=== PATIENT | female | born 1960 | race Caucasian/White ===

== ENCOUNTER 2023-04-08 22:48 | Inpatient (IN) | payer BC ==
[~2023-04-08] VITALS: Ht 167.6 cm; Wt 61.3 kg
[2023-04-08] MEDS ORDERED: LISI20TA30 PO (23:16)
[2023-04-08] MEDS ORDERED: OMEP20CA15 PO (23:16)
[2023-04-08] MEDS ORDERED: OXYC-133 PO (23:16)
[2023-04-08] MEDS ORDERED: GABA600T12 PO (23:16)
[2023-04-08] MEDS ORDERED: DIAZ5TAB4 PO (23:16)
[2023-04-08] MEDS ORDERED: ONDANSETRON 4 MG/2 ML VIAL ONE (23:24)
[2023-04-08 23:33] LABS: BASOPHILS # (AUTO) 0.1 K/UL (0.0-0.2); BASOPHILS % (AUTO) 0.7 % (0.0-2.0); EOSINOPHILS # (AUTO) 0.6 K/uL (0.0-0.7); EOSINOPHILS % (AUTO) 7.7 % (0.0-7.0); HEMATOCRIT 39.2 % (31.2-41.9); HEMOGLOBIN 12.8 g/dL (10.9-14.3); LYMPHOCYTES # (AUTO) 2.1 K/uL (0.8-4.8); LYMPHOCYTES % (AUTO) 26.9 % (20.5-51.5); MEAN CORPUSCULAR HEMOGLOBIN 30.9 uug (24.7-32.8); MEAN CORPUSCULAR HGB CONC 33 g/dL (32.3-35.6); MEAN CORPUSCULAR VOLUME 94.5 fL (75.5-95.3); MONOCYTES # (AUTO) 0.8 K/uL (0.1-1.30); MONOCYTES % (AUTO) 10.1 % (0.0-11.0); NEUTROPHILS # (AUTO) 4.4 K/uL (1.8-8.9); NEUTROPHILS % (AUTO) 54.6 % (38.5-71.5); PLATELET COUNT (AUTO) 218 K/uL (179-408); RED BLOOD CELL COUNT(AUTO) 4.15 MIL/uL (3.63-4.92); RED CELL DISTRIBUTION WIDTH 13.9 % (12.3-17.7)
[2023-04-08] MEDS ORDERED: SODIUM BICARBONATE 4.2 % (NEUT) 5 ML VIAL ONE (23:41)
[2023-04-08] MEDS ORDERED: LIDOCAINE 1%-EPI 1:100,000 20 ML VIAL ONE (23:41)
[2023-04-08 23:42] LABS: DIFFERENTIAL COMMENT 1
[2023-04-08] MEDS: SODIUM BICARBONATE 4.2 % (NEUT) 5 ML VIAL TP ONE (23:45)
[2023-04-09] VITALS (7 sets, daily range): BP systolic 103–121; BP diastolic 57–70; TEMP 97.9–98.4; O2SAT 94–98
[2023-04-09 00:04] LABS: CALCIUM 9.1 mg/dL (8.5-10.1); CARBON DIOXIDE 25 mmol/L (21-32); CHLORIDE 108 mmol/L (98-107); CREATININE 1.8 mg/dL (0.6-1.3); GLUCOSE 113 mg/dL (74-106); POTASSIUM 4.2 mmol/L (3.5-5.1); SODIUM SERUM 143 mmol/L (136-145); UREA NITROGEN, BLOOD 23 mg/dL (7-18)
[2023-04-09] MEDS: IV NORMAL SALINE 1000 ML BAG IV ONE (00:04)
[2023-04-09] MEDS: ONDANSETRON 4 MG/2 ML VIAL IV ONE ×2 (00:04→01:04)
[2023-04-09 00:12] LABS: ALANINE AMINOTRANSFERASE 23 U/L (14-59); ALKALINE PHOSPHATASE 93 U/L (50-136); ASPARTATE AMINOTRANSFERASE 25 U/L (15-37); BILIRUBIN,TOTAL 0.2 mg/dL (0.2-1.0); TOTAL PROTEIN, SERUM 7.5 g/dL (6.4-8.2)
[2023-04-09 00:22] LABS: BILIRUBIN,DIRECT 0.1 mg/dL (0.0-0.2)
[2023-04-09] MEDS ORDERED: ONDANSETRON 4 MG/2 ML VIAL ONE (00:34)
[2023-04-09] MEDS ORDERED: HYDROMORPHONE 1 MG/1 ML DISP.SYRIN ONE ×2 (00:35→01:31)
[2023-04-09] MEDS: HYDROMORPHONE 1 MG/1 ML DISP.SYRIN IV ONE ×2 (01:03→01:35)
[2023-04-09] MEDS ORDERED: IV NORMAL SALINE 250 ML IV ONE (01:08)
[2023-04-09] MEDS ORDERED: SWABABLE VALVE TRANSFER SET EA MC ONE (01:08)
[2023-04-09] MEDS ORDERED: IOHEXOL 300MG/ML 100 ML INFUS..BTL ONE (01:08)
[2023-04-09] MEDS: LIDOCAINE 1%-EPI 1:100,000 20 ML VIAL IJ ONE (02:26)
[2023-04-09] MEDS ORDERED: IOHEXOL 350 100 ML INFUS..BTL ONE (02:55)
[2023-04-09] MEDS ORDERED: ACETAMINOPHEN 325 MG TABLET PO PRN (05:00)
[2023-04-09] MEDS ORDERED: ONDANSETRON 4 MG/2 ML VIAL IV PRN (05:00)
[2023-04-09] MEDS ORDERED: DIAZEPAM 2 MG TABLET PO PRN (05:15)
[2023-04-09] MEDS: ENOXAPARIN SODIUM 30 MG/0.3 ML DISP.SYRIN SUBCUT SCH (05:40)
[2023-04-09] MEDS: OXYCODONE/APAP 5-325 MG TABLET PO PRN (05:41)
[2023-04-09] MEDS: IV NS 1000 ML 1,000 ML IV PRN (05:54)
[2023-04-09] MEDS: PANTOPRAZOLE SODIUM 40 MG TABLET.DR PO SCH (07:05)
[2023-04-09 07:39] LABS: THYROID STIMULATING HORMONE 1.365 mIU/mL (0.358-3.740)
[2023-04-09] MEDS: GABAPENTIN 300 MG CAPSULE PO SCH (08:39)
[2023-04-09] MEDS: LISINOPRIL 20 MG TABLET PO SCH (08:39)
[2023-04-09 09:41] LABS: BASOPHILS % (AUTO) 0.6 % (0.0-2.0); EOSINOPHILS # (AUTO) 0.5 K/uL (0.0-0.7); EOSINOPHILS % (AUTO) 5.9 % (0.0-7.0); HEMOGLOBIN 11.1 g/dL (10.9-14.3); LYMPHOCYTES # (AUTO) 2.3 K/uL (0.8-4.8); LYMPHOCYTES % (AUTO) 28.6 % (20.5-51.5); MEAN CORPUSCULAR HEMOGLOBIN 31.7 uug (24.7-32.8); MEAN CORPUSCULAR HGB CONC 34 g/dL (32.3-35.6); MEAN CORPUSCULAR VOLUME 94.5 fL (75.5-95.3); MONOCYTES # (AUTO) 0.7 K/uL (0.1-1.30); MONOCYTES % (AUTO) 9.1 % (0.0-11.0); NEUTROPHILS # (AUTO) 4.5 K/uL (1.8-8.9); NEUTROPHILS % (AUTO) 55.8 % (38.5-71.5); PLATELET COUNT (AUTO) 180 K/uL (179-408); RED BLOOD CELL COUNT(AUTO) 3.49 MIL/uL (3.63-4.92); RED CELL DISTRIBUTION WIDTH 13.9 % (12.3-17.7); WHITE BLOOD COUNT (AUTO) 8.1 K/uL (3.8-11.8)
[2023-04-09 09:56] LABS: DIFFERENTIAL COMMENT 1
[2023-04-09 10:07] LABS: CALCIUM 8.2 mg/dL (8.5-10.1); CREATININE 1.5 mg/dL (0.6-1.3); POTASSIUM 4.7 mmol/L (3.5-5.1)
[2023-04-09] MEDS ORDERED: ALPR1TAB7 PO (10:39)
[2023-04-09 13:43] LABS: *BILIRUBIN,URIN NEGATIVE (NEGATIVE); *BLOOD, URINE NEGATIVE (NEGATIVE); *CLARITY,URINE CLEAR (CLEAR); *COLOR,URINE LIGHT YELLOW (YELLOW); *KETONES,URINE NEGATIVE (NEGATIVE); *PROTEIN,URINE NEGATIVE (NEGATIVE); *UROBILINOGEN,URINE 0.2 E.U./dl (NORMAL); LEUKOCYTE ESTERASE ,URINE NEGATIVE (NEGATIVE); NITRITE, URINE NEGATIVE (NEGATIVE); UGLUCOSE NEGATIVE (NEGATIVE)
[2023-04-09 14:02] LABS: *CREATININE,URINE 44.7 mg/dL (30-125); *URINE TOTAL PROTEIN RANDOM 14.1 mg/dL (<150/24HR)
[2023-04-10] VITALS (7 sets, daily range): BP systolic 99–136; BP diastolic 60–77; TEMP 97.8–98.6; O2SAT 95–98
[2023-04-10 07:07] LABS: BASOPHILS % (AUTO) 0.7 % (0.0-2.0); EOSINOPHILS # (AUTO) 0.4 K/uL (0.0-0.7); EOSINOPHILS % (AUTO) 7.5 % (0.0-7.0); HEMATOCRIT 31.7 % (31.2-41.9); HEMOGLOBIN 10.6 g/dL (10.9-14.3); LYMPHOCYTES # (AUTO) 1.9 K/uL (0.8-4.8); LYMPHOCYTES % (AUTO) 31.9 % (20.5-51.5); MEAN CORPUSCULAR HEMOGLOBIN 31.3 uug (24.7-32.8); MEAN CORPUSCULAR HGB CONC 33 g/dL (32.3-35.6); MONOCYTES # (AUTO) 0.6 K/uL (0.1-1.30); MONOCYTES % (AUTO) 10.8 % (0.0-11.0); NEUTROPHILS # (AUTO) 2.9 K/uL (1.8-8.9); NEUTROPHILS % (AUTO) 49.1 % (38.5-71.5); PLATELET COUNT (AUTO) 156 K/uL (179-408); RED BLOOD CELL COUNT(AUTO) 3.37 MIL/uL (3.63-4.92); RED CELL DISTRIBUTION WIDTH 13.9 % (12.3-17.7)
[2023-04-10 07:14] LABS: DIFFERENTIAL COMMENT 1
[2023-04-10 07:24] LABS: ALBUMIN 2.8 g/dL (3.4-5.0); BILIRUBIN,TOTAL 0.4 mg/dL (0.2-1.0); CALCIUM 8.2 mg/dL (8.5-10.1); CREATININE 1.2 mg/dL (0.6-1.3); MAGNESIUM 1.8 mg/dL (1.8-2.4); PHOSPHOROUS 3.8 mg/dL (2.5-4.9); POTASSIUM 4.5 mmol/L (3.5-5.1); TOTAL PROTEIN, SERUM 5.6 g/dL (6.4-8.2)
[2023-04-11] VITALS (7 sets, daily range): BP systolic 132–141; BP diastolic 61–86; TEMP 97.8–98.9; O2SAT 95–99
[2023-04-11] MEDS: DIAZEPAM 5 MG TABLET PO PRN (00:44)
[2023-04-11 08:03] LABS: BASOPHILS % (AUTO) 0.8 % (0.0-2.0); EOSINOPHILS # (AUTO) 0.4 K/uL (0.0-0.7); HEMATOCRIT 33.1 % (31.2-41.9); HEMOGLOBIN 11.1 g/dL (10.9-14.3); LYMPHOCYTES # (AUTO) 1.6 K/uL (0.8-4.8); LYMPHOCYTES % (AUTO) 28.6 % (20.5-51.5); MEAN CORPUSCULAR HEMOGLOBIN 31.4 uug (24.7-32.8); MEAN CORPUSCULAR HGB CONC 33 g/dL (32.3-35.6); MEAN CORPUSCULAR VOLUME 94.1 fL (75.5-95.3); MONOCYTES # (AUTO) 0.6 K/uL (0.1-1.30); NEUTROPHILS # (AUTO) 3.1 K/uL (1.8-8.9); NEUTROPHILS % (AUTO) 53.6 % (38.5-71.5); PLATELET COUNT (AUTO) 162 K/uL (179-408); RED BLOOD CELL COUNT(AUTO) 3.52 MIL/uL (3.63-4.92); RED CELL DISTRIBUTION WIDTH 13.5 % (12.3-17.7); WHITE BLOOD COUNT (AUTO) 5.8 K/uL (3.8-11.8)
[2023-04-11 08:06] LABS: A/G RATIO 1.3 (0.7-1.7); ALBUMIN 2.7 g/dL (2.9-4.4); ALPHA-1-GLOBULIN 0.2 g/dL (0.0-0.4); ALPHA-2-GLOBULIN 0.6 g/dL (0.4-1.0); BETA GLOBULIN 0.7 g/dL (0.7-1.3); GAMMA GLOBULIN 0.7 g/dL (0.4-1.8); GLOBULIN, TOTAL 2.1 g/dL (2.2-3.9); M-SPIKE Not Observed g/dL (Not Observed); PTH, INTACT 33 pg/mL (15-65)
[2023-04-11 08:14] LABS: DIFFERENTIAL COMMENT 1
[2023-04-11 08:22] LABS: CALCIUM 8.4 mg/dL (8.5-10.1); CREATININE 1.2 mg/dL (0.6-1.3); MAGNESIUM 1.8 mg/dL (1.8-2.4); PHOSPHOROUS 3.6 mg/dL (2.5-4.9)
[2023-04-11] MEDS ORDERED: PHENOL/SODIUM PHENOLATE SPRAY 177 ML BOTTLE MM ONE (10:45)
[2023-04-11] MEDS: TETRACA/BENZOCA/BUTAMBEN SPRAY 1 SPR CAN TP ONE (11:23)
[2023-04-11] MEDS: DEXAMETHASONE SOD PHOSPHATE 10 MG INJ IV ONE (15:19)
[2023-04-11] MEDS: FAMOTIDINE 20 MG TABLET PO SCH (15:20)
[2023-04-11] MEDS: MAGNESIUM HYDROXIDE 30 ML LIQUID UDC PO PRN (20:22)
[2023-04-11] MEDS: ALPRAZOLAM 0.5 MG TABLET PO PRN (20:26)
[2023-04-12] VITALS: BP 109/59; TEMP 98.1; O2SAT 94
[2023-04-12 04:00] VITALS: BP 129/82; TEMP 98.2; O2SAT 97
[2023-04-12 07:20] VITALS: BP 139/74; TEMP 97.8; O2SAT 98
[2023-04-12] MEDS: DEXAMETHASONE 4 MG TABLET PO SCH (09:26)
[2023-04-12] MEDS: MAGNESIUM HYDROXIDE 30 ML LIQUID UDC PO PRN (09:27)
[2023-04-12 11:35] VITALS: BP 128/74; TEMP 97.5; O2SAT 97
[2023-04-12] MEDS ORDERED: DEXA4TAB68 PO (12:17)
== END 2023-04-12 14:00 | disposition home or self-care (01) | DRG 74 ==
LOC: ER 22:52 → TELE3 04-09 04:30 → MEDSURG3 04-12 09:15
PROVIDERS: ADMIT Nurse Practitioner Acute Care; ATTEND Nurse Practitioner Acute Care
PROC: 0JQ13ZZ Repair Face Subcutaneous Tissue and Fascia, Percutaneous Approach (ICD-10-PCS; principal; 2023-04-09)
PROC: 05H933Z Insertion of Infusion Device into Right Brachial Vein, Percutaneous Approach (ICD-10-PCS; 2023-04-11)
DX: G90.8 Other disorders of autonomic nervous system (principal); S06.0XAA Concussion with loss of consciousness status unknown, initial encounter; N17.9 Acute kidney failure, unspecified; S01.81XA Laceration without foreign body of other part of head, initial encounter; W10.8XXA Fall (on) (from) other stairs and steps, initial encounter; Y92.89 Other specified places as the place of occurrence of the external cause; R40.2362 Coma scale, best motor response, obeys commands, at arrival to emergency department; R40.2142 Coma scale, eyes open, spontaneous, at arrival to emergency department; R40.2252 Coma scale, best verbal response, oriented, at arrival to emergency department; S19.9XXA Unspecified injury of neck, initial encounter; R13.10 Dysphagia, unspecified; G47.00 Insomnia, unspecified; M89.8X9 Other specified disorders of bone, unspecified site; M19.90 Unspecified osteoarthritis, unspecified site; Z96.652 Presence of left artificial knee joint; M41.9 Scoliosis, unspecified; K21.9 Gastro-esophageal reflux disease without esophagitis; I10 Essential (primary) hypertension; Z79.899 Other long term (current) drug therapy; Z88.1 Allergy status to other antibiotic agents; F17.210 Nicotine dependence, cigarettes, uncomplicated; E86.0 Dehydration; E83.51 Hypocalcemia; J39.2 Other diseases of pharynx
CPT/HCPCS: 36415; 70450; 70486; 70490; 70491; 71045; 71250; 72125; 73000; 73130; 76770; 83735; 83970; 84100; 84155; 84165; 84300; 84443; 84484; 85025; 85610; 93005; 93307; A4663; G0378; J1100; J1170; J1650; J2405; J3490; J7040; J8540; Q9967